=== PATIENT | male | born 1985 | race Caucasian/White ===

== ENCOUNTER 2025-07-04 16:20 | Emergency (ER) | payer OTHER, SELFPAY ==
--- NOTE | ~2025-07-04 | CT_ITS ---
EXAMINATION: CT abdomen pelvis wo mike, 07/04/2025 16:25 HYDROGRAPHER HISTORY: R flank to groin pain COMPARISON: No comparisons available. TECHNIQUE: CT scan of the abdomen and pelvis was performed without IV contrast. One or more of the following dose reduction techniques were used: automated exposure control, adjustment of the mA and/or kV according to patient size, use of iterative reconstruction technique. Unless otherwise stated, incidental findings do not require dedicated follow up imaging FINDINGS: CT abdomen: LUNG BASES: The lung bases are clear. The visualized portions of the heart and pericardium are unremarkable. LIVER: Unremarkable, liver contours intact, no lesions. SPLEEN: Unremarkable, no splenomegaly. KIDNEYS: Right Kidney: Unremarkable. No calculi. No hydronephrosis. Left Kidney: Unremarkable. No calculi. No hydronephrosis ADRENAL GLANDS: Unremarkable. PANCREAS: Unremarkable. GALLBLADDER/BILIARY: Mild contractions noted of the gallbladder. STOMACH AND ESOPHAGUS: Visualized stomach and esophagus within normal limits. BOWEL/MESENTERY: Moderate fecal content, no colitis or diverticulitis. Appendix normal. Mesentery normal. No thickening or dilated loops of small bowel. ADENOPATHY/RETROPERITONEUM: No lymphadenopathy. AORTA/VASCULATURE: Normal caliber aorta. FREE FLUID OR FREE AIR: None. CT pelvis: SOLID ORGANS/REPRODUCTIVE: Unremarkable. BLADDER: There is circumferential thickening of the bladder wall. OSSEOUS STRUCTURES: No acute osseous abnormality.No suspicious lesions. OVERLYING SOFT TISSUES: Unremarkable. IMPRESSION: Probable cystitis Reviewed, dictated and finalized at location P. OGRAPHER IMPRESSION: Probable cystitis
--- NOTE | ~2025-07-04 | US_ITS ---
EXAMINATION: US scrotum doppler, 07/04/2025 17:15 DISHTANK OPERATOR HISTORY: R testicular pain Comparison: None Technique: Ivan-scale and color Doppler images were obtained of the testes with spectral analysis to document arterial and venous flow. Findings: Right Testicle:Right testicle 4.3 x 2.6 x 2.9 cm, heterogeneous parenchyma, increased flow. Right Epidiymis:Right epididymis is enlarged with increased flow. Left Testicle: Left testicle 4.4 x 2 x 3 cm, normal parenchyma, normal flow. Left Epidiymis: Left epididymis unremarkable. Hydrocele: None . Varicocele: None Scrotum: Unremarkable. No skin thickening. Impression: 1. Right-sided epididymoorchitis. No gross abscess. Follow-up recommended to assess resolution Reviewed, dictated and finalized at location P. TANK OPERATOR Impression: 1. Right-sided epididymoorchitis. No gross abscess. Follow-up recommended to as sess resolution
[2025-07-04 17:01] VITALS: BP 134/78; PULSE 78; TEMP 36.7; O2SAT 96
[2025-07-04 17:05] LABS: Hematocrit 45.8 % (42.0-52.0); Hemoglobin 15.7 g/dL (14.0-18.0); Immature Granulocyte Percent A 0.4 % (0-0.5); Lymphocytes Absolute Auto 1.48 K/mm3 (0.9-3.2); Mean Corpuscular HGB Conc 34.3 g/dl (32-36); Mean Corpuscular Hemoglobin 32.0 pg (26-34); Mean Corpuscular Volume 93.5 fl (80-100); Nucleated Red Blood Cells Absolute Auto 0.000 K/mm3 (0.0-0.012); Nucleated Red Blood Cells Perc 0.0 % (0.0-0.2); Platelet Count Result 201 k/mm3 (150-375); Red Blood Count 4.90 M/mm3 (4.6-6.20); White Blood Count 16.0 K/mm3 (4.5-10.0)
[2025-07-04] MEDS: MORPHINE SULFATE (*CRX) 4 MG/ML INJ 2 MG IV PUSH (17:10)
[2025-07-04 17:19] LABS: Alanine Aminotransferase 22 U/L (6-50); Albumin Level 4.7 g/dL (3.5-5.1); Alkaline Phosphatase 61 U/L (38-126); Anion Gap 7 mmol/L (4-12); Aspartate Amino Transferase 31 U/L (17-59); Bilirubin,Total 0.7 mg/dL (0.2-1.3); Blood Urea Nitrogen 18 mg/dL (9-20); Calcium 9.5 mg/dL (8.4-10.2); Carbon Dioxide 27 mmol/L (22-30); Chloride 103 mmol/L (98-107); Estimated CRCL calculation 80 ml/min; Estimated Glomerular Filt Rate > 60; Glucose 100 mg/dL (65-110); Potassium 4.4 mmol/L (3.4-5.0); Sodium 137 mmol/L (137-145); Total Protein 7.5 g/dL (6.3-8.2)
[2025-07-04 18:14] LABS: Add Urine Microscopic? NO; Appearance Urine Clear (Clear); Glucose Urine UA 1+ mg/dL (Negative); Leukocyte Esterase Ur Negative LEU/UL (Negative); Nitrate Urine Negative (Negative); Specific Grav Ur 1.022 (1.001-1.035)
[2025-07-04] MEDS: cefTRIAXone 1 GM in SODIUM CHLORIDE 0.9% IV 50 ML 100 ML IVPB (18:16)
[2025-07-04] MEDS: KETOROLAC 15 MG/ML VIAL (*BKC) IV PUSH (18:16)
[2025-07-04] MEDS: DOXYCYCLINE HYCLATE 100 MG TABLET PO (18:16)
--- NOTE | 2025-07-04 18:26 | ED.GENADULT ---
HPI - General Adult General Chief complaint: Abdominal Pain Stated complaint: right flank, right groin pain Time Seen by Provider: 07/04/25 16:24 History of Present Illness HPI narrative: Patient presenting here with right flank pain going to his right groin, he has noticed some to swelling and and swelling. Denies any penile discharge, he is monogamous with his girlfriend. No history of kidney stones. Related Data Allergies Allergy/AdvReac Type Severity Reaction Status Date / Time No Known Allergies Allergy Mild Unverified 10/02/08 12:48 Review of Systems Review of Systems: All systems reviewed & are unremarkable except as noted in HPI and below Exam Narrative: EXAMINATION OF ORGAN SYSTEMS/BODY AREAS: Constitutional: Vital signs per nursing GENERAL:[No acute distress, non-toxic appearing.] HEAD: Normal with no signs of head trauma. EYES: EOMI, conjunctiva normal ENT: Hearing grossly intact LUNGS: Nonlabored breathing. HEART: [Regular rate and rhythm] ABD: [Soft], [nontender to palpation] : Slight tenderness to R scrotum EXT: Normal range of motion SKIN: [No rashes or lesions.] NEURO: [Alert and oriented x 3. No gross focal sensory or strength deficits.] PSYCH: Normal affect Course Vital Signs Vital signs: Vital Signs Temperature 98.0 F 07/04/25 17:01 Pulse Rate 78 07/04/25 17:01 Blood Pressure 134/78 07/04/25 17:01 Pulse Oximetry 96 07/04/25 17:01 Oxygen Delivery Room Air 07/04/25 17:01 Temperature 98.0 F 07/04/25 17:01 Pulse Rate 78 07/04/25 17:01 Blood Pressure 134/78 07/04/25 17:01 Pulse Oximetry 96 07/04/25 17:01 Oxygen Delivery Room Air 07/04/25 17:01 Medical Decision Making [facility] Narrative Medical decision making narrative: Patient presenting with pain to right flank going to groin, with some pain to right scrotum. On exam he does have some slight tenderness to the right scrotum, no exquisite tenderness, I have low concern for torsion, will obtain CT to rule out kidney stone, urinalysis, and scrotal ultrasound. This shows clean urine, signs of epididymal orchitis and elevated white count in cystitis on CT. Given this I do suspect possible STD as cause, discussed with patient as partner at bedside need for treatment and testing, for her and for him, and protected sex until then. Antibiotics ordered. Stable for discharge at this time with follow-up to Urology and return precautions. Vital Signs Vital Signs: Vital Signs Temperature 98.0 F 07/04/25 17:01 Pulse Rate 78 07/04/25 17:01 Blood Pressure 134/78 07/04/25 17:01 Pulse Oximetry 96 07/04/25 17:01 Oxygen Delivery Room Air 07/04/25 17:01 Temperature 98.0 F 07/04/25 17:01 Pulse Rate 78 07/04/25 17:01 Blood Pressure 134/78 07/04/25 17:01 Pulse Oximetry 96 07/04/25 17:01 Oxygen Delivery Room Air 07/04/25 17:01 Lab Data 07/04/25 16:59 07/04/25 16:59 Labs: Lab Results 07/04/25 07/04/25 07/04/25 Range/Units 16:59 18:03 18:10 WBC 16.0 H (4.5-10.0) K/mm3 RBC 4.90 (4.6-6.20) M/mm3 Hgb 15.7 (14.0-18.0) g/dL Hct 45.8 (42.0-52.0) % MCV 93.5 (80-100) fl MCH 32.0 (26-34) pg MCHC 34.3 (32-36) g/dl RDW 12.3 (11.5-14.5) % Plt Count 201 (150-375) k/mm3 MPV 11.0 H (7.4-10.4) fl Immature Gran % (Auto) 0.4 (0-0.5) % Neut % (Auto) 80.5 H (45.5-73.1) % Lymph % (Auto) 9.3 L (18.3-44.2) % Cochran % (Auto) 9.4 H (2.6-8.5) % Eos % (Auto) 0.2 (0-4.4) % Baso % (Auto) 0.2 (0.2-1.2) % Lymph # (Auto) 1.48 (0.9-3.2) K/mm3 Cochran # (Auto) 1.5 H (0.1-0.6) K/mm3 Eos # (Auto) 0.0 (0-0.3) K/mm3 Baso # (Auto) 0.0 (0.0-0.1) K/mm3 Abs Immat Gran (auto) 0.06 H (0.00-0.031) K/mm3 Absolute Neuts (auto) 12.9 H (1.3-6.7) K/mm3 Absolute Nucleated RBC 0.000 (0.0-0.012) K/mm3 Nucleated RBC % 0.0 (0.0-0.2) % Sodium 137 (137-145) mmol/L Potassium 4.4 (3.4-5.0) mmol/L Chloride 103 (98-107) mmol/L Carbon Dioxide 27 (22-30) mmol/L Anion Gap 7 (4-12) mmol/L BUN 18 (9-20) mg/dL Creatinine 0.97 (0.7-1.3) mg/dL Estim Creat Clear Calc 80 ml/min Estimated GFR > 60 (59 - ) Glucose 100 (65-110) mg/dL Calcium 9.5 (8.4-10.2) mg/dL Total Bilirubin 0.7 (0.2-1.3) mg/dL AST 31 (17-59) U/L ALT 22 (6-50) U/L Alkaline Phosphatase 61 (38-126) U/L Total Protein 7.5 (6.3-8.2) g/dL Albumin 4.7 (3.5-5.1) g/dL Urine Color Yellow (Yellow) Urine Appearance Clear (Clear) Urine pH 5.5 (5.0-9.0) Ur Specific [place] 1.022 (1.001-1.035) Urine Protein Negative (Negative) mg/dL Urine Glucose (UA) 1+ H (Negative) mg/dL Urine Ketones Negative (Negative) mg/dL Ur Blood (Man) Negative (Negative) Urine Nitrate Negative (Negative) Urine Bilirubin Negative (Negative) Urine Urobilinogen 0.2 (<2.0) mg/dL Leukocyte Esterase Rfl Negative (Negative) OLIVER/UL C. trachomatis (PCR) Not detected (NOT DETECTE) N. gonorrhoeae (PCR) Not detected (NOT DETECTE) Discharge Plan Discharge Clinical Impression: Epididymo-orchitis, acute Patient Disposition: Home Condition: Stable Instructions: Antibiotic Form, Epididymo-Orchitis (ED) Additional Instructions: Please take the antibiotics as prescribed and come back to the ER for any further issues. Patient Language: Lithuanian Prescriptions: New doxycycline hyclate 100 mg capsule 100 mg PO Q12H 10 Days Qty: 20 0RF ondansetron 4 mg tablet,disintegrating 4 mg PO Q8H PRN (Reason: nausea and vomiting) Qty: 10 0RF ketorolac 10 mg tablet 10 mg PO Q6H PRN (Reason: pain) Qty: 20 0RF Rx Instructions: maximum total duration of 5 days from all oral, intranasal, or parenteral formulations Follow-up/Referrals: Brijesh Lu MD [Physician, Urology] - 2 Days Ephraim Del Rosario MD [Primary Care Provider, Family Practice]
== END 2025-07-04 19:24 | disposition home or self-care (01) ==
PROVIDERS: Emergency Provider Emergency Medicine; PCP Family Medicine Adolescent Medicine
DX: N45.3 Epididymo-orchitis (principal)
CPT/HCPCS: 36415; 74176; 76870; 80053; 81003; 85025; 87086; 87491; 87591; 93976; 96365; 96375; 99284; A9270; J0696; J1885; J2270